=== PATIENT | female | born 1945 | race Caucasian/White ===

== ENCOUNTER 2018-06-26 15:11 | Emergency (ER) ==
[2018-06-26 15:16] VITALS: BP 97/66; TEMP 97.2; BMI 24.2
[2018-06-26] MEDS ORDERED: MORPHINE 4 MG/ML SYRINGE IVP STA (15:34)
[2018-06-26] MEDS ORDERED: SODIUM CHLORIDE 1,000 ML IV STA (15:34)
[2018-06-26] MEDS ORDERED: ZOFRAN 4 MG/2 ML IVP STA (15:34)
--- NOTE | 2018-06-26 16:39 | CT ---
EXAM: CT of the chest without contrast History: Cough, colon cancer Comparison: CT thoracic spine 06/26/2018 Technique: Multiplanar CT images through the thorax were obtained without the administration of IV c ontrast Findings: Heart size is normal. Coronary calcifications. No pericardial effusion. No thoracic aor tic aneurysm. No axillary lymphadenopathy. No pathologically enlarged mediastinal lymph nodes. Elvira luation for hilar lymph nodes is limited due to lack of contrast administration. There is interlobul ar septal thickening within the lungs. There are multiple sub-centimeter bilateral lung nodules with the largest on the right measuring 8 mm and the largest on the left measuring 8 mm. Small right ple ural effusion. No pneumothorax. Within the visualized upper abdomen, there are multiple ill-defined hypoattenuating liver lesions wit h the largest measuring 6.5 cm in the right hepatic lobe. Partially visualized enlarged upper abdomi nal lymph nodes. No acute osseous abnormalities. Impression: 1. Multiple sub-centimeter bilateral lung nodules suspicious for metastasis. 2. Interlobular septal thickening within the lungs could represent infection, edema or lymphangitic carcinomatosis. 3. Small right pleural effusion. 4. Coronary artery disease. 5. Metastatic liver lesions
--- NOTE | 2018-06-26 16:46 | CT ---
EXAM: CT thoracic spine without contrast HISTORY: History of colon cancer, stage IV, pain COMPARISON: None TECHNIQUE: CT thoracic spine performed without intravenous contrast. Coronal and sagittal reformatt ed images obtained FINDINGS: Vertebral bodies normal height. No fracture. No subluxation. Minimal chronic appearing anterior wedging T7. Moderate chronic discogenic degenerative disease with intervertebral disc space narrowing and marginal osteophyte formation No suspicious lytic or blastic lesions identified. Cent ral canal grossly patent. Please refer to separate report CT chest regarding findings in the chest, noting multiple pulmonary nodules. Please refer to separate report CT abdomen pelvis, noting liver ma sses. IMPRESSION: 1. No fracture or subluxation. No suspicious lytic or blastic lesions identified. 2. Moderate chronic discogenic degenerative disease. 3. Minimal chronic anterior wedging T7. 4. Please refer to separate report CT chest, noting multiple pulmonary nodules. 5. Please refer to separate report CT abdomen pelvis, noting liver masses.
--- NOTE | 2018-06-26 16:53 | CT ---
EXAM: CT abdomen pelvis without contrast HISTORY: Back pain due to advanced colon cancer COMPARISON: Same day CT lumbar spine and CT chest TECHNIQUE: Serial axial images of the abdomen pelvis were performed from the lung bases through the inferior pelvis without contrast. These were viewed in multiple planes. FINDINGS: The lung bases are better evaluated on same day CT chest. Small right effusion is present . Evaluation of the liver demonstrates multiple hepatic masses the largest in the inferior right hepati c lobe measuring 5.0 x 6.6 cm. There is adjacent smaller mass and a anterior right hepatic lobe mass measuring 4.6 x 3.6 cm. The gallbladder has been resected. The adrenal glands are normal. There is adrenal nodularity. The kidneys are normal in appearance on this noncontrast evaluation. The spleen is mildly enlarged. Pancreas is normal. The stomach is mildly distended. Small bowel in the abdomen pelvis is unremarkable. The colon demon strates few diverticuli without diverticulitis. There is focal area of narrowing and questionable ap ple core lesion in the splenic flexure on axial image 18 and coronal 24. The pelvic soft tissues are normal. Urinary bladder is unremarkable. There is no free air or free fluid. There is multilevel de generative disease of the lumbosacral spine. This is better evaluated on same day lumbar spine CT. IMPRESSION: 1. Focal area of narrowing and questionable apical for lesion in the splenic flexure. 2. Multiple liver masses. This would be better evaluated on CT with contrast. This is suggestive o f metastatic disease. 3. Diverticulosis without diverticulitis.
--- NOTE | 2018-06-26 16:55 | CT ---
EXAM: CT of the lumbar spine without contrast History: Lower back pain, history of cancer. Comparison: CT abdomen pelvis 06/26/2018 Technique: Multiplanar CT images through the lumbar spine were obtained without the administration o f IV contrast Findings: Atherosclerotic vascular calcifications. Metastatic liver lesions. Partially visualized right pleural effusion. No acute fracture or subluxation of the lumbar spine. Severe disc space narrowing at L3-L4 and L4-L5 with endplate sclerosis and osteophyte formation. Mild to moderate disc space narrowing seen elsewh ere. Osteopenia. No suspicious sclerotic or lytic osseous lesions. T12-L1: Left paracentral disc protrusion effacing anterior thecal sac with mild canal stenosis. Mil d bilateral bony neural foraminal narrowing secondary to ligamentous and facet hypertrophy. L1-L2: No significant disc bulge or central canal stenosis. Mild bilateral bony neural foraminal na rrowing secondary to ligamentous and facet hypertrophy. L2-L3: Posterior disc osteophyte complex effacing anterior thecal sac. The mild central canal steno sis. Moderate left and mild right bony neural foraminal narrowing secondary to ligamentous and facet hypertrophy. L3-L4: Posterior disc osteophyte complex effacing anterior thecal sac with mild to moderate central canal stenosis. Moderate to severe bilateral bony neural foraminal narrowing secondary to ligamentou s and facet hypertrophy. L4-L5: Posterior disc osteophyte complex effacing anterior thecal sac with mild central canal stenos is. Severe right and moderate to severe left bony neural foraminal narrowing secondary to ligamentou s and facet hypertrophy. L5-S1: No significant bony central canal stenosis. Moderate bilateral bony neural foraminal narrowi ng secondary to ligamentous and facet hypertrophy. Impression: 1. No acute osseous abnormality of the lumbar spine. 2. Degenerative changes with level by level analysis as detailed above. 3. Metastatic liver lesions
[2018-06-26] MEDS ORDERED: MORPHINE 2 MG/ML SYRINGE IVP STA (17:39)
--- NOTE | 2018-06-26 17:42 | ED.PDOC ---
General ED Provider: Dr. NATE HE Chief Complaint: Back Pain Stated Complaint: LOW BACK PAIN Time Seen by Physician: 15:15 (NEGATIVE TRAUMA ) Mode of Arrival: Walk-In Information Source: Patient Exam Limitations: No limitations Nursing and Triage Documentation Reviewed and Agree: Yes Does patient meet sepsis criteria?: No System Inflammatory Response Syndrome: Not Applicable Sepsis Protocol: For patient's 13 years and over: Temp is 96.8 and below OR 101 and greater Pulse >90 BPM Resp >20/minute Acutely Altered Mental Status Are patient's symptoms suggestive of a new infection, such as: -Pneumonia -Skin, Soft Tissue -Endocarditis -UTI -Bone, Joint Infection -Implantable Device -Acute Abdominal Infection -Wound Infection -Meningitis -Blood Stream Catheter Infection -Unknown Musculoskeletal Complaint Exam - Back Pain Complaint/Exam Mechanism of Injury: Reports: No known trauma Onset/Duration: CHRONIC FOR MONTHS HAS HX/O STAGE 4 COLON CANCER Symptoms Are: Still present Timing: Constant Episodes Lasting: Weeks Initial Severity: Moderate Current Severity: Moderate Location: Reports: Discrete Character: Reports: Aching Aggravating: Reports: Movements, Lifting, Bending, Walking Alleviating: Reports: Rest, Position Associated Signs and Symptoms: Denies: Swelling, Redness, Bruising, Fever, Weakness, Numbness, Tingling, Abdominal pain, Flank pain, Bladder incontinence, Bowel incontinence, Weight loss, Pain with weight bearing Related History: Reports: Similar episode TAD Risk Factors: Reports: Hypertension Cauda Equina Risk Factors: Reports: None Epidural Abcess Risk Factors: Reports: None Related Surgical History: Reports: None Focal Tenderness: No Paraspinal Muscle Tenderness: No Paraspinal Muscle Spasm: No Scoliosis: No Lordosis: No SLR Test: Right Negative, Left Negative Hip Motion Testing Pain: Right Negative, Left Negative Focal Weakness: Present: None Focal Sensory Loss: Present: None Gait: Present: Normal Differential Diagnoses: Strain, Sprain (METS TO SPINE) Review of Systems - Review Of Systems Constitutional: Reports: No symptoms Eyes: Reports: No symptoms Ears, Nose, Mouth, Throat: Reports: No symptoms Respiratory: Reports: No symptoms Cardiac: Reports: No symptoms GI: Reports: No symptoms : Reports: No symptoms Musculoskeletal: Reports: Back pain Skin: Reports: No symptoms Neurological: Reports: No symptoms Endocrine: Reports: No symptoms Hematologic/Lymphatic: Reports: No symptoms All Other Systems: Reviewed and Negative Past Medical History - Past Medical History Previously Healthy: Yes Endocrine: Reports: None Cardiovascular: Reports: None Respiratory: Reports: None Hematological: Reports: None Gastrointestinal: Reports: None Genitourinary: Reports: None Neuro/Psych: Reports: None Musculoskeletal: Reports: None Cancer: Reports: Colon (WITH METS ) Last Menstrual Period: N/A - Surgical History General Surgical History: Reports: None - Family History Family History: Reports: None - Social History Smoking Status: Current every day smoker, Heavy tobacco smoker Hx Substance Use: No Alcohol Screening: None - Immunizations Tetanus Shot up to Date: Yes Physical Exam - Physical Exam Appearance: Well-appearing, No pain distress, Well-nourished Eyes: TYLER, EOMI, Conjunctiva clear ENT: Dry mucosa Respiratory: Airway patent, Breath sounds clear, Breath sounds equal, Respirations nonlabored Cardiovascular: RRR, Pulses normal, No rub, No murmur GI/: Soft, Nontender, No masses, Bowel sounds normal, No Organomegaly Musculoskeletal: Normal strength, ROM intact, No edema, No calf tenderness Skin: Warm, Dry, Normal color Neurological: Sensation intact, Motor intact, Reflexes intact, Cranial nerves intact, Alert, Oriented Psychiatric: Affect appropriate, Mood appropriate Interpretation - Radiology Interpretation Radiology Interpretation By: Radiologist Radiology Results: Positive (METS TO LUNG, LIVER, SPLEEN SHARED WITH PT AND FAMILY) Re-Evaluation - Re-Evaluation Time of Re-Evaluation: 17:42 Status: Improved Vital Signs Stable: Yes Pain Level: 3/10 Appearance: NAD Lungs: Clear Skin: Warm and Dry Neuro: Alert and Oriented X3 CV: RRR - Re-Evaluation Time of Re-Evaluation: 17:43 Status: Improved Vital Signs Stable: Yes Appearance: NAD Skin: Warm and Dry Neuro: Alert and Oriented X3 CV: RRR Critical Care Note - Critical Care Note Total Time (mins): 0 Course - Course Hematology/Chemistry: 06/26/18 15:45 06/26/18 15:45 Orders, Labs, Meds: Lab Review 06/26/18 06/26/18 15:45 15:45 WBC 8.00 RBC 4.62 Hgb 14.2 Hct 42.9 MCV 92.9 MCH 30.7 MCHC 33.1 RDW Coeff of Lady 14.0 Plt Count 211 Immature Gran % (Auto) 0.3 Neut % (Auto) 71.9 Lymph % (Auto) 16.3 Bell % (Auto) 8.9 Eos % (Auto) 2.1 Baso % (Auto) 0.5 Immature Gran # (Auto) 0.0 Neut # (Auto) 5.8 Lymph # (Auto) 1.3 Bell # (Auto) 0.7 Eos # (Auto) 0.2 Baso # (Auto) 0.0 Sodium 133.6 L Potassium 4.19 Chloride 101.5 Carbon Dioxide 26.2 Anion Gap 10.09 BUN 23.3 H Creatinine 1.18 Estimated GFR (MDRD) 45.00 BUN/Creatinine Ratio 19.74 Glucose 109.9 H Calcium 10.07 Total Bilirubin 0.59 AST 64.5 H ALT 42.7 H Alkaline Phosphatase 812.2 H Total Protein 7.40 Albumin 4.00 Globulin 3.40 Albumin/Globulin Ratio 1.17 Orders Category Date Time Status CBC W/ AUTO DIFF Stat LAB 06/26/18 15:45 Completed COMPREHENSIVE METABOLIC PANEL Stat LAB 06/26/18 15:45 Completed URINALYSIS C & S IF INDICATED Stat LAB 06/26/18 17:25 Received Morphine Sulfate [Morphine 2 mg/ml Syringe] MEDS 06/26/18 17:39 Stat 2 mg IVP ONCE STA Morphine Sulfate [Morphine 4 mg/ml Syringe] MEDS 06/26/18 15:34 Discontinued 4 mg IVP ONCE STA Ondansetron HCl/Pf [Zofran 4 mg/2 ml] MEDS 06/26/18 15:34 Discontinued 4 mg IVP ONCE STA Sodium Chloride 0.9% [Sodium Chloride] 1,000 ml MEDS 06/26/18 15:[address] ABDOMEN/PELVIS WO CONTRAST Stat RADS 06/26/18 15:[address] CHEST W/O CONTRAST Stat RADS 06/26/18 15:[address] LUMBAR SPINE W/O CONTRAST Stat RADS 06/26/18 15:[address] THORACIC SPINE W/O CONTRAST Stat RADS 06/26/18 15:32 Completed Medications Discontinued Medications Generic Name Dose Route Start Last Admin Trade Name Freq PRN Reason Stop Dose Admin Sodium Chloride 1,000 mls @ 1,000 mls/hr 06/26/18 15:34 06/26/18 15:48 Sodium Chloride IV 06/26/18 16:33 1,000 mls/hr BOLUS STA Administration Morphine Sulfate 4 mg 06/26/18 15:34 06/26/18 15:48 Morphine 4 Mg/Ml Syringe IVP 06/26/18 15:35 4 mg ONCE STA Administration Morphine Sulfate 2 mg 06/26/18 17:39 Morphine 2 Mg/Ml Syringe IVP 06/26/18 17:40 ONCE STA Ondansetron HCl 4 mg 06/26/18 15:34 06/26/18 15:48 Zofran 4 Mg/2 Ml IVP 06/26/18 15:35 4 mg ONCE STA Administration Vital Signs: Temp Pulse Resp BP Pulse Ox 06/26/18 15:11 97.2 F L 114 H 16 97/66 95 Departure - Departure Time of Disposition: 17:43 Disposition: HOME SELF-CARE Discharge Problem: Backache Condition: Good Pt referred to PMD for follow-up: Yes IPMP verified?: No Additional Instructions: Please call your Family Physician as soon as possible to schedule a follow-up appointment. Allergies/Adverse Reactions: Allergies propoxyphene [From Darvon] Adverse Reaction (Verified 06/26/18 15:17) Disposition Discussed With: Patient, Family
== END 2018-06-26 18:15 | disposition home or self-care (01) ==
LOC: ED 15:11
DX: M54.5 Low back pain (principal); I10 Essential (primary) hypertension; F17.210 Nicotine dependence, cigarettes, uncomplicated; C18.9 Malignant neoplasm of colon, unspecified; C79.9 Secondary malignant neoplasm of unspecified site
CPT/HCPCS: 36415; 80053; 81001; 85025; 87086; 96361; 96375; 96376; 99284